=== PATIENT | male | born 1990 | race Two or more races ===

== ENCOUNTER 2022-04-22 14:16 | Emergency (ER) | payer OTHER, SELFPAY ==
--- NOTE | ~2022-04-22 | XR_ITS ---
EXAMINATION: XR ANKLE, LEFT CLINICAL INFORMATION: Swelling and pain COMPARISON: None TECHNIQUE: AP, lateral, and mortise views of the left ankle. FINDINGS: There is soft tissue swelling here. No evidence for an acute fracture or dislocation. The mortise is grossly intact. Significant spurring at the insertion of the Achilles and plantar aponeuroses on the posterior calcaneus. XR/XR ankle LT 2V IMPRESSION: Soft tissue swelling is noted. No acute fracture or dislocation.
--- NOTE | ~2022-04-22 | US_ITS ---
EXAMINATION: US extremity nonvascular CLINICAL INFORMATION: Reason for Exam Concern for ruptured Achilles COMPARISON: Left ankle radiographs performed earlier the same day TECHNIQUE: Targeted ultrasound of the left Achilles was performed utilizing a high frequency linear array transducer. FINDINGS: There is a thickening and heterogeneous hypoechoic signal within the Achilles tendon with marked attenuation of the normal fibular tendon fibers compatible with a combination of tendinosis and high-grade partial if not full thickness tearing with subcutaneous edema. US/US extremity nonvascular IMPRESSION: 1. Findings compatible with a combination of tendinosis and high-grade partial if not full thickness Achilles tendon tearing. Recommend MRI for further assessment.
[2022-04-22 15:40] VITALS: BP 149/86; PULSE 104; RESP 16; TEMP 36.9; O2SAT 97; BMI 57.4
--- NOTE | 2022-04-22 18:18 | ED.LOWEXIN ---
HPI - Extremity Injury (Lower) General Chief Complaint: Extremity Injury, Lower <JONATHAN Shell Last Filed: 04/22/22 18:41> Stated Complaint: L torn achilles <JONATHAN Shell Last Filed: 04/22/22 18:41> Time Seen by Provider: 04/22/22 17:54 <JONATHAN Shell Last Filed: 04/22/22 18:41> Source: patient <JONATHAN Shell Last Filed: 04/22/22 18:41> Mode of arrival: ambulatory (With cane) <JONATHAN Shell Last Filed: 04/22/22 18:41> History of Present Illness HPI Narrative: 32-year-old male with no significant past medical history presenting to the ED complaining of left ankle/distal calf pain and swelling s/p [place] yesterday and landing wrong on way down, hearing pop. Reports swelling started immediately after incident. Has been minimally ambulatory with pain. Denies injury to the area, falling all the way to ground, head trauma, LOC, numbness/tingling <JONATHAN Shell Last Filed: 04/22/22 18:41> MD complaint: ankle injury <JONATHAN Shell Last Filed: 04/22/22 18:41> Onset (ago): day(s) <JONATHAN Shell Last Filed: 04/22/22 18:41> Related Data Home Medications: Previous Rx's Medication Instructions Recorded acetaminophen 500 mg tablet 500 mg PO Q6H PRN fever or pain 04/22/22 (Tylenol Extra Strength) #14 tabs ibuprofen 800 mg tablet 800 mg PO Q8H PRN pain #14 tabs 04/22/22 <JONATHAN Shell Last Filed: 04/22/22 18:41> Allergies/Adverse Reactions: Allergies Allergy/AdvReac Type Severity Reaction Status Date / Time Penicillins Allergy Unknown Verified 04/22/22 16:21 <JONATHAN Shell Last Filed: 04/22/22 18:41> Review of Systems Review of Systems: Constitutional: No Fever, No Chills ENT/Mouth: No Ear Pain, No Nasal Congestion, No Sinus Pain, No Hoarseness, No sore throat, No Rhinorrhea, No Swallowing Difficulty Cardiovascular: No Chest Pain, No SOB Respiratory: No Cough, No Sputum, No Wheezing Gastrointestinal: No Nausea, No Vomiting, No Diarrhea, No Constipation, No Abdominal pain Genitourinary: No Dysuria, No Urinary Frequency, No Hematuria, No Flank Pain Musculoskeletal: + joint pain, No Myalgias, + Joint Swelling Skin: No Skin Lesions, No rash Neuro: No Weakness, No Numbness, No Paresthesias <JONATHAN Shell - Last Filed: 04/22/22 18:41> Yes all other systems are reviewed and are negative <JONATHAN Shell Last Filed: 04/22/22 18:41> Constitutional: Constitutional: Reports as per HPI <JONATHAN Shell Last Filed: 04/22/22 18:41> [facility] Past Medical History Attestation statement: The following information was validated with the patient. <JONATHAN Shell Last Filed: 04/22/22 18:41> Social History Social History: Social History Advance Directives: No Advance Directives Information Provided: No <JONATHAN Shell Last Filed: 04/22/22 18:41> Physical Exam Vital Signs: Vital Signs: Last Vital Signs Temp 98.5 F 04/22/22 15:40 Pulse 104 H 04/22/22 15:40 Resp 16 04/22/22 15:40 BP 149/86 H 04/22/22 15:40 Pulse Ox 97 04/22/22 15:40 O2 Del Method 04/22/22 15:40 BMI result Body Mass Index 57.4 <JONATHAN Shell Last Filed: 04/22/22 18:41> Vital Signs: Last Vital Signs Temp 98.5 F 04/22/22 15:40 Pulse 104 H 04/22/22 15:40 Resp 16 04/22/22 15:40 BP 149/86 H 04/22/22 15:40 Pulse Ox 97 04/22/22 15:40 O2 Del Method 04/22/22 15:40 BMI result Body Mass Index 57.4 <JONATHAN Reid Last Filed: 04/22/22 20:42> Const: General: cooperative, healthy appearing and no acute distress <Mohini Cui PA - Last Filed: 04/22/22 18:41> Orientation/consciousness: patient oriented x3 <Mohini Cui PA - Last Filed: 04/22/22 18:41> Limitations: no limitations <Mohini Cui PA - Last Filed: 04/22/22 18:41> HEENT: Head: Yes normal to inspection and Yes atraumatic <Mohini Cui PA - Last Filed: 04/22/22 18:41> Ears: hearing grossly normal bilaterally <Mohini Cui PA - Last Filed: 04/22/22 18:41> General nose exam: Normal external nose present <Mohini Cui PA - Last Filed: 04/22/22 18:41> Face and sinus: Yes normal facial exam <Mohini Cui PA - Last Filed: 04/22/22 18:41> Eyes: General: appearance normal, both eyes and all related structures <Mohini Cui PA - Last Filed: 04/22/22 18:41> EOM: EOMs intact bilaterally <Mohini Cui PA - Last Filed: 04/22/22 18:41> Neck: Neck: Yes normal visual inspection and Yes no meningeal signs <Mohini Ciu PA - Last Filed: 04/22/22 18:41> Resp: Effort & Inspection: normal respiratory effort and no respiratory distress <Mohini Cui PA - Last Filed: 04/22/22 18:41> Cardio: Rate: regular rate <Mohini Cui PA - Last Filed: 04/22/22 18:41> Heart sounds: S1 normal heart sound present and S2 normal heart sound present <Mohini Cui PA - Last Filed: 04/22/22 18:41> Peripheral pulses: dorsalis pedis present <JONATHAN Shell - Last Filed: 04/22/22 18:41> Skin: Rashes: no rashes <Mohini Cui PA - Last Filed: 04/22/22 18:41> Wounds: no wounds <Mohini Cui PA - Last Filed: 04/22/22 18:41> Neuro: General: patient oriented x3, tone normal and no meningeal signs <JONATHAN Shell Last Filed: 04/22/22 18:41> Gait exam (Neuro): Normal gait present <JONATHAN Shell Last Filed: 04/22/22 18:41> Extrem: Other: Left lower extremity with varicose veins (old). + notable swelling to distal calf/ankle and foot. + tenderness to Achilles tendon and ankle. Foot nontender. Neurovascularly intact. Limited ankle are when secondary to pain/swelling. Positive Golden's test. No erythema/warmth. Compartments soft <JONATHAN Shell Last Filed: 04/22/22 18:41> Course Course Course Narrative: XR ankle LT 2V IMPRESSION: Soft tissue swelling is noted. No acute fracture or dislocation. -1899--ED care transferred to JONATHAN Luna pending ultrasound. Anticipated DC home <JONATHAN Shell Last Filed: 04/22/22 18:41> Reevaluation(s) Reevaluation #1: US + for possible tear of achilles tendon. Patient will be placed in a splint and given crutches. Advised follow-up with orthopedics and return with new or worsening symptoms. <JONATHAN Reid - Last Filed: 04/22/22 20:42> Time: 20:39 <JONATHAN Reid Last Filed: 04/22/22 20:42> MDM - Extremity Injury (Lower) MDM Narrative Medical decision making narrative: 32-year-old male with no significant past medical history presenting to the ED complaining of left ankle/distal calf pain and swelling s/p [place] beach yesterday and landing wrong on way down, hearing pop. On exam tachycardic likely from pain, NAD/nontoxic-appearing, physical exam as above with positive Golden's test. Concern for Achilles tendon rupture vs partial tear. Rule out ankle fracture vs sprain. Low suspicion for compartment syndrome Plan: X-ray, ultrasound <JONATHAN Shell - Last Filed: 04/22/22 18:41> Medical Records Attestation: I reviewed the patient's medical records. <JONATHAN Shell Last Filed: 04/22/22 18:41> Lab Data Attestation: I reviewed the patient's lab results. <JONATHAN Shell - Last Filed: 04/22/22 18:41> Critical Care Time Critical Care Time Critical Care Time: No <JONATHAN Reid - Last Filed: 04/22/22 20:42> Discharge Plan Discharge Clinical Impression: Achilles tendon rupture <JONATHAN Shell - Last Filed: 04/22/22 18:41> Patient Disposition: Home, Self-Care <JONATHAN Shlel - Last Filed: 04/22/22 18:41> Instructions: Achilles Tendon Rupture (ED) <JONATHAN Shell - Last Filed: 04/22/22 18:41> Additional Instructions: Your x-rays does not show a fracture Ice and elevate your leg Do not bear weight on your left leg. Use crutches You need to follow-up with the orthopedic doctor <JONATHAN Shell - Last Filed: 04/22/22 18:41> Prescriptions: New ibuprofen 800 mg tablet 800 mg PO Q8H PRN (Reason: pain) Qty: 14 0RF acetaminophen [Tylenol Extra Strength] 500 mg tablet 500 mg PO Q6H PRN (Reason: fever or pain) Qty: 14 0RF <JONATHAN Shell - Last Filed: 04/22/22 18:41> Referrals: Jose Miguel Doe MD [Physician] - 1 week <JONATHAN Shell - Last Filed: 04/22/22 18:41>
[2022-04-22] MEDS: Ketorolac Tromethamine 30 MG/ML VIAL IM (18:39)
== END 2022-04-22 21:22 | disposition home or self-care (01) ==
PROVIDERS: Emergency Provider Emergency Medicine
DX: S86.012A Strain of left Achilles tendon, initial encounter (principal); M25.572 Pain in left ankle and joints of left foot; X58.XXXA Exposure to other specified factors, initial encounter; Y93.9 Activity, unspecified; Y92.832 Beach as the place of occurrence of the external cause; Y99.9 Unspecified external cause status; Z79.899 Other long term (current) drug therapy
CPT/HCPCS: 73600; 76882; 96372; 99283; 99284; J1885

== ENCOUNTER → 2022-04-24 14:06 | Outpatient (BNVA) | payer OTHER, SELFPAY | PROVIDERS: Visit Provider Physician Assistant | DX: S86.012A Strain of left Achilles tendon, initial encounter (principal) | CPT/HCPCS: 99202 ==